=== PATIENT | male | born 1955 | race Caucasian/White ===

== ENCOUNTER 2019-06-03 11:14 | Emergency (ER) | payer MEDICARE ==
[~2019-06-03] VITALS: Ht 165.1 cm; Wt 59.0 kg
[~2019-06-03 11:14] MED LIST: HYDR-3164 PO
[2019-06-03 11:42] VITALS: BP 110/76
[2019-06-03] MEDS ORDERED: HYDR-3164 PO (12:32)
--- NOTE | 2019-06-03 12:33 | PHYS DOC ---
Past Medical History Past Medical History: A-Fib, CAD, CHF, High Cholesterol, [place] Additional Past Medical Histor: PATIENT REPORTING 16 DOCUMENTED HEART ATTACKS, LAST OR 01/07/2015 Past Surgical History: Coronary Bypass Surgery Additional Past Surgical Histo: 22 STENTS PLACED, RIGHT SHOULDER SURGERY IN 1998 Alcohol Use: None Drug Use: None Adult General Chief Complaint Chief Complaint: LOWER EXT [facility]IN [facility] HPI Patient is a 63 year old male with history of A. fib, bypass surgery 9 years ago, CAD, high cholesterol, who presents to the ED today complaining of moderate pain to the left lower extremity, patient has been going for the last 2 months. Patient states he has already been evaluated in the emergency room approximately a month ago and the deep venous as well as arterial Doppler which showed some occlusion in his left femoral artery. He states he is currently on Eliquis and he is seeing his vascular surgeon on Saturday. Is requesting something for pain to take until mild cellulitis is the vascular surgeon. Patient states his pain to the left lower extremity is exacerbated on walking. Review of Systems Review of Systems Constitutional: Denies fever or chills [] Eyes: Denies change in visual acuity, redness, or eye pain [] HENT: Denies nasal congestion or sore throat [] Respiratory: Denies cough or shortness of breath [] Cardiovascular: No additional information not addressed in HPI [] GI: Denies abdominal pain, nausea, vomiting, bloody stools or diarrhea [] : Denies dysuria or hematuria [] Musculoskeletal: Reports left lower extremity pain Integument: Denies rash or skin lesions [] Neurologic: Denies headache, focal weakness or sensory changes [] All other systems were reviewed and found to be within normal limits, except as documented in this note. Allergies Allergies Allergies Coded Allergies Type Severity Reaction Last Updated Verified No Known Drug Allergies 07/02/15 No Physical Exam Physical Exam Constitutional: Well developed, well nourished, no acute distress, non-toxic appearance. [] HENT: Normocephalic, atraumatic, bilateral external ears normal, oropharynx moist, no oral exudates, nose normal. [] Eyes: PERRLA, EOMI, conjunctiva normal, no discharge. [] Neck: Normal range of motion, no tenderness, supple, no stridor. [] Cardiovascular:Heart rate regular rhythm, no murmur [] Lungs & Thorax: Bilateral breath sounds clear to auscultation [] Abdomen: Bowel sounds normal, soft, no tenderness, no masses, no pulsatile masses. [] Skin: Warm, dry, no erythema, no rash. [] Back: No tenderness, no CVA tenderness. [] Extremities: Venous cord noted on the left inner leg consistent with a bypass surgery. No cyanosis, no clubbing, ROM intact, no edema. Negative Homans sign. +1 left pedal pulse. Cap refill less than 2 seconds left toes. Neurologic: Alert and oriented X 3, normal motor function, normal sensory function, no focal deficits noted. [] Psychologic: Affect normal, judgement normal, mood normal. [] Current Patient Data Vital Signs Vital Signs Date Time Temp Pulse Resp B/P (MAP) Pulse Ox O2 Delivery O2 Flow Rate FiO2 06/03/19 11:42 98.0 103 18 110/76 (87) 97 Room Air 98.0 EKG EKG [] Radiology/Procedures Radiology/Procedures [] Course & Med Decision Making Course & Med Decision Making Pertinent Labs and Imaging studies reviewed. (See chart for details) This is a 63-year-old male patient who presents to the ED today requesting pain medicine for the left lower extremity pain. Patient has partial occlusion to the left arterial bypass. He has an appointment with a vascular surgeon on Saturday currently on [facility]. He requested pain medicine stating he does not want any further work up considering he will see his doctor next week, RX of norco provided. Local [facility] pharmacy called stating this patient has been noted to present prescriptions for hydrocodone every 3 days or so from different emergency rooms. I requested they not fill the prescription I gave him today Dragon Disclaimer Dragon Disclaimer This electronic medical record was generated, in whole or in part, using a voice recognition dictation system. Departure Departure Impression: Primary Impression: Leg pain, left Disposition: HOME, SELF-CARE Condition: STABLE Referrals: HILDA CONSTANTINO (PCP) Follow up with the vascular surgeon on Saturday Patient Instructions: Bypass Surgery, Arteries of the Legs, Care After Additional Instructions: Please follow up with your doctor next week. Scripts Hydrocodone/Apap 5-325 (NORCO 5-325 TABLET) 1 Each Tablet 1 TAB PO Q6HRS, #25 TAB Prov: GABRIEL JANE BROADCAST ENGINEER 06/03/19 GABRIEL JANE BROADCAST ENGINEER Jun 03, 2019 12:32
== END 2019-06-03 12:40 | disposition home or self-care (01) ==
LOC: ER 11:14
DX: M79.605 Pain in left leg (principal); I48.91 Unspecified atrial fibrillation; I50.9 Heart failure, unspecified; E78.00 Pure hypercholesterolemia, unspecified; I25.2 Old myocardial infarction; Z95.5 Presence of coronary angioplasty implant and graft
CPT/HCPCS: 99283

== ENCOUNTER 2019-08-01 15:06 | Emergency (ER) | payer MEDICARE ==
[~2019-08-01] VITALS: Ht 165.1 cm; Wt 59.0 kg
[2019-08-01 15:20] VITALS: BP 127/71
[2019-08-01] MEDS ORDERED: PENI500T PO (15:41)
[2019-08-01] MEDS ORDERED: ACET-704 PO (15:41)
--- NOTE | 2019-08-01 15:41 | PHYS DOC ---
Past Medical History Past Medical History: A-Fib, CAD, CHF, High Cholesterol, [place] Additional Past Medical Histor: PATIENT REPORTING 16 DOCUMENTED HEART ATTACKS, LAST [place] 01/07/2015 Past Surgical History: Coronary Bypass Surgery Additional Past Surgical Histo: 22 STENTS PLACED, RIGHT SHOULDER SURGERY IN 1998 Alcohol Use: None Drug Use: None Adult General Chief Complaint Chief Complaint: DENTAL PROBLEM [facility] HPI Patient is a 63 year old male who presents to the emergency department with complaints of lower jaw gum swelling and dental pain for several days. He states that his teeth hurt so bad he has been unable to eat. He currently rates his pain a 10 out of 10 on pain scale he has been taking ibuprofen and Tylenol at home with no relief of his symptoms. He denies any fever, nausea, vomiting, clare rrhea, shortness of breath, cough, headache, or ear pain. All other ROS is neg unless otherwise noted in HPI. Review of Systems Review of Systems See Above Allergies Allergies Allergies Coded Allergies Type Severity Reaction Last Updated Verified No Known Drug Allergies 07/02/15 No Physical Exam Physical Exam See Above Constitutional: Well developed, well nourished, no acute distress, non-toxic appearance. [] HENT: Normocephalic, atraumatic, bilateral external ears normal, oropharynx moist, no oral exudates, nose normal; diffuse lower dental decay with multiple broken and missing lower teeth, erythema and swelling of lower frontal gums with no visible abscess. [] Eyes: PERRLA, EOMI, conjunctiva normal, no discharge. [] Neck: Normal range of motion, no stridor. [] Cardiovascular:Heart rate regular rhythm Lungs & Thorax: Bilateral breath sounds clear to auscultation [] Skin: Warm, dry, no erythema, no rash. [] Extremities: No cyanosis, ROM intact Neurologic: Alert and oriented X 3, no focal deficits noted. [] Psychologic: Affect normal, judgement normal, mood normal. [] EKG EKG [] Radiology/Procedures Radiology/Procedures [] Course & Med Decision Making Course & Med Decision Making Pertinent Labs and Imaging studies reviewed. (See chart for details) [] Dragon Disclaimer Dragon Disclaimer This electronic medical record was generated, in whole or in part, using a voice recognition dictation system. Departure Departure Impression: Primary Impression: Infected dental caries Additional Impressions: Gingivitis, chronic Dentalgia Disposition: HOME, SELF-CARE Condition: STABLE Referrals: HILDA CONSTANTINO (PCP) Patient Instructions: Dental Caries, Dental Pain, [id number] Additional Instructions: Fill prescription(s) and use as directed. Follow up with dentist using the referral list provided. Return to the ER if symptoms worsen. Scripts Acetaminophen With Codeine (TYLENOL WITH CODEINE #3 TABLET) 1 Each Tablet 1 TAB PO PRN Q6HRS PRN for pain MDD 4 Tablet(s) for 2 Days, #8 TAB 0 Refills Prov: GEORGIA MENDOZA APRN 08/01/19 Penicillin V Potassium (PENICILLIN V POTASSIUM) 500 Mg Tablet 1 TAB PO QID for 10 Days, #40 TAB 0 Refills Prov: GEORGIA MENDOZA APRN 08/01/19 Problem Qualifiers GEORGIA MENDOZA APRN Aug 01, 2019 15:41
== END 2019-08-01 15:49 | disposition home or self-care (01) ==
LOC: ER 15:06
DX: K05.10 Chronic gingivitis, plaque induced (principal); K04.7 Periapical abscess without sinus; K08.89 Other specified disorders of teeth and supporting structures; E78.00 Pure hypercholesterolemia, unspecified; I48.91 Unspecified atrial fibrillation; I25.2 Old myocardial infarction; I25.10 Atherosclerotic heart disease of native coronary artery without angina pectoris; Z95.1 Presence of aortocoronary bypass graft; Z95.5 Presence of coronary angioplasty implant and graft; Z86.79 Personal history of other diseases of the circulatory system
CPT/HCPCS: 99283

== ENCOUNTER 2019-08-05 15:12 | Emergency (ER) | payer MEDICARE ==
[~2019-08-05] VITALS: Ht 165.1 cm; Wt 59.0 kg
[~2019-08-05 15:12] MED LIST changes: +ACET-704 PO; +PENI500T PO
[2019-08-05 15:57] VITALS: BP 123/71
--- NOTE | 2019-08-05 16:23 | PHYS DOC ---
Past Medical History Past Medical History: [place] Additional Past Medical Histor: PATIENT REPORTING 16 DOCUMENTED HEART ATTACKS, LAST [place] 01/07/2015 Past Surgical History: Coronary Bypass Surgery Additional Past Surgical Histo: [address] ST[address] PLACED, RIGHT SHOULDER SURGERY IN 1998 Alcohol Use: None Drug Use: None Adult General Chief Complaint Chief Complaint: DENTAL PROBLEM HPI HPI Patient is a 63 year old male who presents to the emergency department with complaints of lower jaw gum swelling and dental pain for several days. He states that his teeth hurt so bad he has been unable to eat. He currently rates his pain a 10 out of 10 on pain scale he has been the antibiotic and pain medication as prescribed with no relief of his symptoms. Pt states he is out of the pain medication. He denies any fever, nausea, vomiting, diarrhea, shortness of breath, cough, headache, or ear pain. All other ROS is neg unless otherwise noted in HPI. Review of Systems Review of Systems See Above Allergies Allergies Allergies Coded Allergies Type Severity Reaction Last Updated Verified No Known Drug Allergies 07/02/15 No Physical Exam Physical Exam Physical Exam See Above Constitutional: Well developed, well nourished, no acute distress, non-toxic appearance. [] HENT: Normocephalic, atraumatic, bilateral external ears normal, oropharynx moist, no oral exudates, nose normal; diffuse lower dental decay with multiple broken and missing lower teeth, erythema and swelling of lower frontal gums with no visible abscess. [] Eyes: PERRLA, EOMI, conjunctiva normal, no discharge. [] Neck: Normal range of motion, no stridor. [] Cardiovascular:Heart rate regular rhythm Lungs & Thorax: Bilateral breath sounds clear to auscultation [] Skin: Warm, dry, no erythema, no rash. [] Extremities: No cyanosis, ROM intact Neurologic: Alert and oriented X 3, no focal deficits noted. [] Psychologic: Affect normal, judgement normal, mood normal. [] Current Patient Data Vital Signs Vital Signs Date Time Temp Pulse Resp B/P (MAP) Pulse Ox O2 Delivery O2 Flow Rate FiO2 08/05/19 15:57 97.7 81 18 123/71 (88) 98 Room Air 97.7 See Above EKG EKG [] Radiology/Procedures Radiology/Procedures [] Course & Med Decision Making Course & Med Decision Making Pertinent Labs and Imaging studies reviewed. (See chart for details) [] Dragon Disclaimer Dragon Disclaimer This electronic medical record was generated, in whole or in part, using a voice recognition dictation system. Departure Departure Impression: Primary Impression: Infected dental caries Additional Impressions: Dentalgia Gingivitis, chronic Disposition: HOME, SELF-CARE Condition: STABLE Referrals: HILDA CONSTANTINO (PCP) Patient Instructions: Dental Caries, Dental Pain, [id number] Additional Instructions: Continue taking your antibiotic as prescribed. Follow up with a dentist to have your teeth removed. Return to the ER if symptoms worsen. Problem Qualifiers GEORGIA MENDOZA OUTSIDE SALES INSPECTOR Aug 05, 2019 16:23
[2019-08-05] MEDS ORDERED: HYDROcodone/APAP 5/325MG 1 TAB TABLET PO ONE (16:30)
== END 2019-08-05 16:39 | disposition home or self-care (01) ==
LOC: ER 15:12
DX: K05.10 Chronic gingivitis, plaque induced (principal); K04.7 Periapical abscess without sinus; K08.89 Other specified disorders of teeth and supporting structures; I25.2 Old myocardial infarction; Z95.1 Presence of aortocoronary bypass graft; Z95.5 Presence of coronary angioplasty implant and graft
CPT/HCPCS: 99282